=== PATIENT | female | born 1985 | race Caucasian/White ===

== ENCOUNTER 2018-11-05 21:34 | Outpatient (CLI) | payer OTHER ==
[~2018-11-05] VITALS: Ht 154.9 cm; Wt 66.4 kg
[2018-11-05 21:49] VITALS: BP 121/63
== END 2018-11-05 22:20 | disposition home or self-care (01) ==
LOC: LDOP 21:34
PROVIDERS: ATTEND Obstetrics & Gynecology
DX: O62.9 Abnormality of forces of labor, unspecified (principal); O26.892 Other specified pregnancy related conditions, second trimester; R10.9 Unspecified abdominal pain; Z3A.22 22 weeks gestation of pregnancy
CPT/HCPCS: 81001; 87086; 99201; G0463

== ENCOUNTER 2019-02-07 11:04 | Outpatient (CLI) | payer OTHER ==
[~2019-02-07] VITALS: Ht 154.9 cm; Wt 71.3 kg
[~2019-02-07 11:04] MED LIST: DOCU240C31 PO; IBUP-1222 PO; OXYC-302 PO; PREN1TAB60 PO
== END 2019-02-07 12:02 | disposition home or self-care (01) ==
LOC: LDOP 11:04
PROVIDERS: ATTEND Obstetrics & Gynecology
DX: O26.853 Spotting complicating pregnancy, third trimester (principal); O26.893 Other specified pregnancy related conditions, third trimester; R10.9 Unspecified abdominal pain; Z3A.36 36 weeks gestation of pregnancy
CPT/HCPCS: 59025; 99211; G0463

== ENCOUNTER 2019-03-03 08:24 | Inpatient (IN) | payer OTHER ==
[~2019-03-03] VITALS: Ht 154.9 cm; Wt 72.3 kg
[2019-03-03] MEDS ORDERED: MISOPROSTOL 200 MCG TABLET ONE (08:31)
[2019-03-03] MEDS ORDERED: NEWBORN KIT ONE (08:31)
[2019-03-03] MEDS ORDERED: LIDOCAINE 1%, 20ML ONE (08:31)
[2019-03-03] MEDS ORDERED: OXYTOCIN 30U/ 0.9% NaCL 500ML 500 ML ONE ×2 (08:31→22:00)
[2019-03-03] MEDS: LACTATED RINGERS 1,000 ML IV SCH ×2 (08:45→14:00)
[2019-03-03] MEDS: AMPICILLIN 1 GM in SODIUM CHLORIDE 0.9% 50 ML IVPB SCH ×2 (13:00→16:51)
[2019-03-03] MEDS ORDERED: OXYTOCIN 30U/ 0.9% NaCL 500ML 500 ML IV PRN (13:22)
[2019-03-03] MEDS ORDERED: OXYTOCIN 30U/ 0.9% NaCL 500ML 500 ML IV ONE (13:22)
[2019-03-03] MEDS ORDERED: D5%-LACTATED RINGERS 1,000 ML IV SCH (13:22)
[2019-03-03] MEDS ORDERED: ONDANSETRON 2MG/ML, 2ML IVPush PRN (13:30)
[2019-03-03] MEDS ORDERED: FENTANYL PF 100 MCG/2ML IVPush PRN (13:30)
[2019-03-03] MEDS ORDERED: FENTANYL PF 100 MCG/2ML IV PRN (13:30)
[2019-03-03] MEDS ORDERED: TERBUTALINE 1 MG/ML, 1ML SQ PRN (13:30)
[2019-03-03] MEDS ORDERED: AMPICILLIN 2 GM in SODIUM CHLORIDE 0.9% 100 ML IVPB ONE (13:30)
[2019-03-03] MEDS ORDERED: TERBUTALINE 1 MG/ML, 1ML IVPush PRN (13:30)
[2019-03-03 13:45] LABS: BASOPHILS # (AUTO) 0.02 x10^3/uL (0-0.1); BASOPHILS % (AUTO) 0 % (0-1); EOSINOPHILS # (AUTO) 0.06 x10^3/uL (0-0.4); EOSINOPHILS % (AUTO) 1 % (1-7); LYMPHOCYTES % (AUTO) 25 % (22-44); MD NO; MEAN CORPUSCULAR HEMOGLOBIN 31.1 pg (27.0-34.8); MEAN CORPUSCULAR HGB CONC 33.4 g/dL (32.4-35.8); MEAN CORPUSCULAR VOLUME 93.1 fL (80-100); MEAN PLATELET VOLUME 10.6 fL (7.4-10.4); MONOCYTES # (AUTO) 0.25 x10^3/uL (0.2-0.8); MONOCYTES % (AUTO) 3 % (2-9); NEUTROPHILS # (AUTO) 6.81 x10^3/uL (1.8-6.8); NEUTROPHILS % (AUTO) 71 % (42-75); PLATELET COUNT 165 x10^3/uL (130-400); RED BLOOD COUNT 3.86 x10^6/uL (3.82-5.3); RED CELL DISTRIBUTION WIDTH 13.2 % (9.6-15.2)
[2019-03-03] MEDS ORDERED: PLEASE ENTER HEIGHT AND WEIGHT MC SCH (14:00)
[2019-03-03] MEDS ORDERED: FENTANYL PF 100 MCG/2ML ONE (16:41)
[2019-03-03] MEDS ORDERED: FENTANYL/BUPIV./NS/PF 250 ML EPIDCONT SCH (17:32)
[2019-03-03] MEDS ORDERED: LACTATED RINGERS 1,000 ML IV SCH ×2 (17:32→19:00)
[2019-03-03] MEDS ORDERED: LIDOCAINE/PF 1.5%-EPI 1:200K, 30ML ONE (17:55)
[2019-03-03] MEDS ORDERED: EPHEDRINE 50 MG/ML, 1ML ONE (17:55)
[2019-03-03] MEDS ORDERED: FENTANYL/BUPIV./NS/PF 250 ML EPIDCONT ONE (17:55)
[2019-03-03] MEDS ORDERED: FENTANYL PF 500 MCG, BUPIVACAINE/PF 0.5%, 30ML 62.5 ML in SODIUM CHLORIDE 0.9% 177.5 ML EPIDCONT SCH ×2 (18:00→18:26)
[2019-03-03] MEDS ORDERED: LACTATED RINGERS 1,000 ML IVBOLUS PRN ×2 (18:00→18:30)
[2019-03-03] MEDS: EPHEDRINE 50 MG/ML, 1ML IVPush PRN ×2 (18:17→19:00)
[2019-03-03] MEDS ORDERED: EPHEDRINE 50 MG/ML, 1ML IVPush PRN (18:30)
[2019-03-03] MEDS ORDERED: NALOXONE 0.4 MG/ML, 1ML IVPush PRN (18:30)
[2019-03-03 19:17] VITALS: BP 130/60
[2019-03-03] MEDS: OXYTOCIN 30U/ 0.9% NaCL 500ML 500 ML IV SCH (22:30)
[2019-03-03] MEDS ORDERED: MAGNESIUM HYDROXIDE 8%, 30ML UDC PO PRN (23:00)
[2019-03-03] MEDS ORDERED: ACETAMINOPHEN 325 MG TABLET PO PRN ×2 (23:00)
[2019-03-03] MEDS ORDERED: MISOPROSTOL 200 MCG TABLET PR PRN (23:00)
[2019-03-03] MEDS ORDERED: MEASLES,MUMPS&RUBELLA VACC/PF 0.5 ML SQ-VACC PRN (23:00)
[2019-03-03] MEDS ORDERED: RHOGAM FROM BLOOD BANK 1 NOTE EA IM/IV ONE (23:00)
[2019-03-04 01:10] VITALS: BP 103/57
[2019-03-04] MEDS: IBUPROFEN 600 MG TABLET PO PRN ×4 (01:12→21:30)
[2019-03-04] MEDS ORDERED: AMPICILLIN 1 GM in SODIUM CHLORIDE 0.9% 100 ML IV SCH (01:30)
[2019-03-04] MEDS: HYDROcodone/APAP 5/325 TABLET PO PRN ×5 (02:06→21:31)
[2019-03-04 05:10] VITALS: BP 94/56
[2019-03-04 06:39] LABS: BASOPHILS # (AUTO) 0.02 x10^3/uL (0-0.1); BASOPHILS % (AUTO) 0 % (0-1); EOSINOPHILS # (AUTO) 0.03 x10^3/uL (0-0.4); EOSINOPHILS % (AUTO) 0 % (1-7); LYMPHOCYTES # (AUTO) 2.55 x10^3/uL (1-3.4); LYMPHOCYTES % (AUTO) 19 % (22-44); MD NO; MEAN CORPUSCULAR HEMOGLOBIN 31.5 pg (27.0-34.8); MEAN CORPUSCULAR HGB CONC 33.7 g/dL (32.4-35.8); MEAN CORPUSCULAR VOLUME 93.5 fL (80-100); MEAN PLATELET VOLUME 9.5 fL (7.4-10.4); MONOCYTES # (AUTO) 0.57 x10^3/uL (0.2-0.8); MONOCYTES % (AUTO) 4 % (2-9); NEUTROPHILS # (AUTO) 10.55 x10^3/uL (1.8-6.8); NEUTROPHILS % (AUTO) 77 % (42-75); PLATELET COUNT 158 x10^3/uL (130-400); RED BLOOD COUNT 3.38 x10^6/uL (3.82-5.3); RED CELL DISTRIBUTION WIDTH 13.4 % (9.6-15.2)
[2019-03-04 07:55] VITALS: BP 99/65
[2019-03-04] MEDS: PRENATAL VIT/IRON/FA 1 EACH TABLET PO SCH (07:59)
[2019-03-04] MEDS: DOCUSATE 100 MG CAPSULE PO PRN ×2 (07:59→21:31)
[2019-03-04] MEDS: OXYTOCIN 30U/ 0.9% NaCL 500ML 500 ML IV SCH ×2 (08:52→18:52)
[2019-03-04 13:11] VITALS: BP 101/68
[2019-03-04 19:45] VITALS: BP 109/73
[2019-03-05] MEDS: HYDROcodone/APAP 5/325 TABLET PO PRN ×3 (01:53→11:31)
[2019-03-05] MEDS: OXYTOCIN 30U/ 0.9% NaCL 500ML 500 ML IV SCH (04:52)
[2019-03-05] MEDS: IBUPROFEN 600 MG TABLET PO PRN (07:04)
[2019-03-05] MEDS: DOCUSATE 100 MG CAPSULE PO PRN (07:05)
[2019-03-05] MEDS: PRENATAL VIT/IRON/FA 1 EACH TABLET PO SCH (07:05)
[2019-03-05 07:10] VITALS: BP 107/70
[2019-03-05] MEDS ORDERED: IBUP-1222 PO (10:25)
== END 2019-03-05 12:30 | disposition home or self-care (01) | DRG 807 ==
LOC: LDIP 08:24 → 2NW 03-04 00:42
PROVIDERS: ADMIT Obstetrics & Gynecology; ATTEND Obstetrics & Gynecology
PROC: 3E033VJ Introduction of Other Hormone into Peripheral Vein, Percutaneous Approach (ICD-10-PCS; 2019-03-03)
PROC: 10E0XZZ Delivery of Products of Conception, External Approach (ICD-10-PCS; principal; 2019-03-04)
PROC: 10907ZC Drainage of Amniotic Fluid, Therapeutic from Products of Conception, Via Natural or Artificial Opening (ICD-10-PCS; 2019-03-04)
PROC: 3E0R3BZ Introduction of Anesthetic Agent into Spinal Canal, Percutaneous Approach (ICD-10-PCS; 2019-03-04)
PROC: 00HU33Z Insertion of Infusion Device into Spinal Canal, Percutaneous Approach (ICD-10-PCS; 2019-03-04)
DX: O99.824 Streptococcus B carrier state complicating childbirth (principal); Z37.0 Single live birth; Z3A.39 39 weeks gestation of pregnancy
CPT/HCPCS: 36415; J3490; 85025; 86850; 86900; G0378; J0290; J3010; J2590; J7120

== ENCOUNTER 2019-12-08 02:42 | Observation (INO) | payer OTHER ==
[~2019-12-08] VITALS: Ht 154.9 cm; Wt 75.0 kg
[2019-12-08 03:16] LABS: MICROSCOPIC INDICATED
[2019-12-08 03:19] VITALS: BP 116/58
[2019-12-08] MEDS ORDERED: ONDANSETRON 2MG/ML, 2ML ONE (03:52)
[2019-12-08] MEDS ORDERED: ONDANSETRON 2MG/ML, 2ML IVPush PRN (04:00)
[2019-12-08] MEDS ORDERED: D5%-LACTATED RINGERS 1,000 ML IV SCH (04:00)
[2019-12-08] MEDS ORDERED: LACTATED RINGERS 1,000 ML IVBOLUS ONE (04:00)
[2019-12-08 04:28] LABS: BASOPHILS # (AUTO) 0.01 x10^3/uL (0-0.1); BASOPHILS % (AUTO) 0 % (0-1); EOSINOPHILS % (AUTO) 0 % (1-7); LYMPHOCYTES # (AUTO) 1.11 x10^3/uL (1-3.4); LYMPHOCYTES % (AUTO) 8 % (22-44); MD NO; MEAN CORPUSCULAR HEMOGLOBIN 31.3 pg (27.0-34.8); MEAN CORPUSCULAR HGB CONC 33.8 g/dL (32.4-35.8); MEAN CORPUSCULAR VOLUME 92.7 fL (80-100); MEAN PLATELET VOLUME 9.8 fL (7.4-10.4); MONOCYTES # (AUTO) 0.58 x10^3/uL (0.2-0.8); MONOCYTES % (AUTO) 4 % (2-9); NEUTROPHILS # (AUTO) 12.09 x10^3/uL (1.8-6.8); NEUTROPHILS % (AUTO) 88 % (42-75); PLATELET COUNT 169 x10^3/uL (130-400); RED BLOOD COUNT 3.71 x10^6/uL (3.82-5.3); RED CELL DISTRIBUTION WIDTH 13.5 % (9.6-15.2)
[2019-12-08 04:40] LABS: ALANINE AMINOTRANSFERASE 18 U/L (12-78); ALBUMIN 2.7 g/dL (3.4-5.0); ANION GAP 8 mmol/L (5-15); CALCIUM 8.6 mg/dL (8.5-10.1); CHLORIDE 107 mmol/L (98-107); CREATININE 0.67 mg/dL (0.55-1.02)
[2019-12-08 04:42] LABS: ALKALINE PHOSPHATASE 92 U/L (45-117); BILIRUBIN,TOTAL 0.4 mg/dL (0.2-1.0)
[2019-12-08 04:44] LABS: RAPID INFLUENZA A Negative (Negative); RAPID INFLUENZA B Negative (Negative)
[2019-12-08 05:24] LABS: MICROSCOPIC INDICATED
[2019-12-08] MEDS ORDERED: ACETAMINOPHEN 325 MG TABLET PO PRN (05:30)
[2019-12-08] MEDS ORDERED: ACETAMINOPHEN 325 MG TABLET ONE (05:33)
== END 2019-12-08 08:36 | disposition home or self-care (01) ==
LOC: LDOP 02:42 → LDIP 05:00
PROVIDERS: ADMIT Obstetrics & Gynecology; ATTEND Obstetrics & Gynecology
DX: O21.2 Late vomiting of pregnancy (principal); Z20.828 Contact with and (suspected) exposure to other viral communicable diseases; O26.893 Other specified pregnancy related conditions, third trimester; R50.9 Fever, unspecified; Z3A.30 30 weeks gestation of pregnancy
CPT/HCPCS: 36415; 59025; 80053; 81001; 85025; 87086; 87147; 87400; 87635; 96361; 96374; G0378; J2405; J7120; J7121; 96360; 96365

== ENCOUNTER 2020-01-31 13:01 | Inpatient (IN) | payer OTHER ==
[~2020-01-31] VITALS: Ht 154.9 cm; Wt 77.3 kg
[2020-01-31] MEDS ORDERED: NEWBORN KIT ONE (13:23)
[2020-01-31] MEDS ORDERED: OXYTOCIN 30U/ 0.9% NaCL 500ML 500 ML ONE (13:23)
[2020-01-31 13:32] VITALS: BP 103/62
[2020-01-31] MEDS ORDERED: AMPICILLIN 2 GM in SODIUM CHLORIDE 0.9% 100 ML IVPB ONE (13:56)
[2020-01-31] MEDS ORDERED: OXYTOCIN 30U/ 0.9% NaCL 500ML 500 ML IV ONE (14:00)
[2020-01-31] MEDS ORDERED: ONDANSETRON 2MG/ML, 2ML IVPush PRN (14:00)
[2020-01-31] MEDS ORDERED: D5%-LACTATED RINGERS 1,000 ML IV SCH (14:00)
[2020-01-31] MEDS ORDERED: TERBUTALINE 1 MG/ML, 1ML IVPush PRN (14:00)
[2020-01-31] MEDS ORDERED: TERBUTALINE 1 MG/ML, 1ML SQ PRN (14:00)
[2020-01-31] MEDS ORDERED: PENICILLIN GK 5,000,000 UNITS in DEXTROSE 5% 100 ML IVPB ONE (14:00)
[2020-01-31] MEDS ORDERED: FENTANYL PF 100 MCG/2ML IVPush PRN (14:00)
[2020-01-31] MEDS ORDERED: LACTATED RINGERS 1,000 ML IV SCH ×2 (14:00→15:30)
[2020-01-31 14:22] LABS: BASOPHILS % (AUTO) 1 % (0-1); EOSINOPHILS % (AUTO) 1 % (1-7); LYMPHOCYTES % (AUTO) 18 % (22-44); MEAN CORPUSCULAR HEMOGLOBIN 31.1 pg (27.0-34.8); MEAN CORPUSCULAR HGB CONC 33.7 g/dL (32.4-35.8); MEAN PLATELET VOLUME 10.1 fL (7.4-10.4); MONOCYTES % (AUTO) 4 % (2-9); NEUTROPHILS % (AUTO) 77 % (42-75); PLATELET COUNT 175 x10^3/uL (130-400); RED BLOOD COUNT 3.74 x10^6/uL (3.82-5.3); RED CELL DISTRIBUTION WIDTH 13.8 % (9.6-15.2)
[2020-01-31 14:25] LABS: MD NO
[2020-01-31] MEDS ORDERED: OXYTOCIN 30U/ 0.9% NaCL 500ML 500 ML IV PRN (15:00)
[2020-01-31] MEDS ORDERED: NALOXONE 0.4 MG/ML, 1ML IVPush PRN (15:30)
[2020-01-31] MEDS ORDERED: FENTANYL/BUPIV./NS/PF 250 ML EPIDCONT SCH (15:30)
[2020-01-31] MEDS ORDERED: LACTATED RINGERS 1,000 ML IVBOLUS PRN (15:30)
[2020-01-31] MEDS ORDERED: EPHEDRINE 50 MG/ML, 1ML IVPush PRN (15:30)
[2020-01-31] MEDS ORDERED: BUPIVACAINE 0.25% ONE (15:40)
[2020-01-31] MEDS ORDERED: FENTANYL/BUPIV./NS/PF 250 ML EPIDCONT ONE (15:40)
[2020-01-31] MEDS ORDERED: PENICILLIN GK 2,500,000 UNITS in DEXTROSE 5% 100 ML IVPB SCH (18:00)
[2020-01-31] MEDS ORDERED: METHYLERGONOVINE 0.2 MG/ML IM PRN (18:00)
[2020-01-31] MEDS ORDERED: ACETAMINOPHEN 325 MG TABLET PO PRN (18:00)
[2020-01-31] MEDS ORDERED: AMPICILLIN 1 GM in SODIUM CHLORIDE 0.9% 100 ML IVPB SCH (18:00)
[2020-01-31] MEDS ORDERED: ONDANSETRON 2MG/ML, 2ML IV PRN (18:00)
[2020-01-31] MEDS: OXYTOCIN 30U/ 0.9% NaCL 500ML 500 ML IV SCH (18:00)
[2020-01-31] MEDS ORDERED: MISOPROSTOL 200 MCG TABLET PR PRN (18:00)
[2020-01-31] MEDS ORDERED: SIMETHICONE 80 MG CHEW TAB PO PRN (18:00)
[2020-01-31] MEDS ORDERED: IBUPROFEN 600 MG TABLET ONE (18:34)
[2020-01-31] MEDS: IBUPROFEN 600 MG TABLET PO PRN (18:35)
[2020-01-31 20:30] VITALS: BP 101/66
[2020-01-31] MEDS: HYDROcodone/APAP 5/325 TABLET PO PRN (20:52)
[2020-01-31] MEDS: DOCUSATE 100 MG CAPSULE PO PRN (20:53)
[2020-01-31 22:03] LABS: BASOPHILS % (AUTO) 0 % (0-1); EOSINOPHILS % (AUTO) 0 % (1-7); LYMPHOCYTES % (AUTO) 16 % (22-44); MEAN CORPUSCULAR HEMOGLOBIN 30.8 pg (27.0-34.8); MEAN CORPUSCULAR HGB CONC 33.5 g/dL (32.4-35.8); MEAN PLATELET VOLUME 10.4 fL (7.4-10.4); MONOCYTES % (AUTO) 5 % (2-9); NEUTROPHILS % (AUTO) 78 % (42-75); PLATELET COUNT 181 x10^3/uL (130-400); RED BLOOD COUNT 3.64 x10^6/uL (3.82-5.3); RED CELL DISTRIBUTION WIDTH 13.5 % (9.6-15.2)
[2020-01-31 22:05] LABS: MD NO
[2020-02-01 00:20] VITALS: BP 101/62
[2020-02-01] MEDS: HYDROcodone/APAP 5/325 TABLET PO PRN ×6 (01:11→22:29)
[2020-02-01] MEDS: IBUPROFEN 600 MG TABLET PO PRN ×4 (01:11→22:29)
[2020-02-01] MEDS: OXYTOCIN 30U/ 0.9% NaCL 500ML 500 ML IV SCH ×2 (04:00→13:59)
[2020-02-01 04:20] VITALS: BP 107/73
[2020-02-01 08:13] VITALS: BP 98/57
[2020-02-01] MEDS: PRENATAL VIT/IRON/FA 1 EACH TABLET PO SCH (08:13)
[2020-02-01] MEDS: DOCUSATE 100 MG CAPSULE PO PRN (08:13)
[2020-02-01 11:42] VITALS: BP 111/76
[2020-02-01 16:16] VITALS: BP 104/70
[2020-02-01 20:20] VITALS: BP 105/59
[2020-02-02] MEDS: OXYTOCIN 30U/ 0.9% NaCL 500ML 500 ML IV SCH
[2020-02-02] MEDS: HYDROcodone/APAP 5/325 TABLET PO PRN ×2 (03:00→07:35)
[2020-02-02] MEDS: IBUPROFEN 600 MG TABLET PO PRN (06:21)
[2020-02-02] MEDS: DOCUSATE 100 MG CAPSULE PO PRN (07:35)
[2020-02-02] MEDS: PRENATAL VIT/IRON/FA 1 EACH TABLET PO SCH (07:35)
[2020-02-02 07:41] VITALS: BP 114/84
[2020-02-02] MEDS ORDERED: IBUP-1222 PO (09:01)
[2020-02-02] MEDS ORDERED: DOCU-131 PO (09:01)
[2020-02-02] MEDS ORDERED: HYDR-3240 PO (09:02)
== END 2020-02-02 11:28 | disposition home or self-care (01) | DRG 807 ==
LOC: LDOP 13:01 → LDIP 13:46 → 2NW 20:05
PROVIDERS: ADMIT Obstetrics & Gynecology; ATTEND Obstetrics & Gynecology
PROC: 10E0XZZ Delivery of Products of Conception, External Approach (ICD-10-PCS; principal; 2020-01-31)
PROC: 3E0R3BZ Introduction of Anesthetic Agent into Spinal Canal, Percutaneous Approach (ICD-10-PCS; 2020-01-31)
PROC: 00HU33Z Insertion of Infusion Device into Spinal Canal, Percutaneous Approach (ICD-10-PCS; 2020-01-31)
PROC: 4A1HXCZ Monitoring of Products of Conception, Cardiac Rate, External Approach (ICD-10-PCS; 2020-01-31)
DX: O99.824 Streptococcus B carrier state complicating childbirth (principal); Z37.0 Single live birth; O69.81X0 Labor and delivery complicated by cord around neck, without compression, not applicable or unspecified; Z20.828 Contact with and (suspected) exposure to other viral communicable diseases; Z3A.38 38 weeks gestation of pregnancy
CPT/HCPCS: 36415; 85025; 86592; 86850; 86900; 87635; 89060; G0378; J0290; J2590; J3010; J7120; Q0114